=== PATIENT | female | born 2000 | race Caucasian/White ===

== ENCOUNTER 2019-05-20 09:53 | Emergency (ER) | payer BC ==
[2019-05-20] MEDS ORDERED: Ondansetron ODT 8 MG TAB ONE (10:18)
--- NOTE | 2019-05-20 10:33 | RAD ---
Exam: Chest one view HISTORY:Evaluate for esophageal tear Comparison: None FINDINGS: Cardiac silhouette: Normal Aorta: Unremarkable Pulmonary vessels: Normal Costophrenic angles: Clear LUNGS: No masses or consolidation. Pneumothorax: None Osseous abnormalities: None IMPRESSION: No acute cardiopulmonary process.
== END 2019-05-20 11:00 | disposition home or self-care (01) ==
LOC: ERS 09:53
DX: J11.1 Influenza due to unidentified influenza virus with other respiratory manifestations (principal); F41.9 Anxiety disorder, unspecified; F32.9 Major depressive disorder, single episode, unspecified; Z79.899 Other long term (current) drug therapy
CPT/HCPCS: 71045